=== PATIENT | male | born 1930 | race Caucasian/White ===

== ENCOUNTER 2017-12-24 10:06 | Observation (INO) | payer OTHER, BC ==
[~2017-12-24] VITALS: Ht 167.6 cm; Wt 65.7 kg
[~2017-12-24 10:06] MED LIST: ASPIRIN E.C.81 M2 PO; COUMADIN,JANTO1.5 MG PO; CYANOCOBALAM1000 MCG PO; FISH OIL 1,0001 EAC4 PO; LIPITOR20 MG PO; METHOCARBAMOL500 MG PO; NEXIUM40 MG PO; OMEGA 3 1,0001 EAC1 PO; OMEGA 3 1,0001 EACH PO; OMEGA-3100 MG PO; PRADAXA150 MG PO; PRINIVIL5 MG PO; Proventil,Ventolin H IH; TOPROL XL25 MG PO; TOPROL XL50 MG PO; TYLENOL EXTRA500 MG PO; VITAMIN B12-FO1 EACH PO; VITAMIN D; VITAMIN D2000 INTUN PO; VITAMIN D31000 UNI2 PO; VITAMIN D400 UNI2 PO; XALATAN 0.50 DROP/2. BOTH EYES; XALATAN2.5 ML BOTH EYES; XARELTO15 MG PO; ZESTRIL,PRINIVI20 MG PO; ZETIA10 MG PO
[2017-12-24 10:48] LABS: HEMATOCRIT 42.7 % (38.0-50.0); HEMOGLOBIN 14.7 G/DL (12.5-16.6); MCH 30.9 PG (29.0-34.0); MCHC 34.4 G/DL (30.0-36.0); MCV 89.7 FL (86-99); PLATELET COUNT 159 K/uL (156-360); RBC DIS.WIDTH-CV 12.9 % (11.8-14.6); RBC DIS.WIDTH-SD 42.1 % (39-53); RED BLOOD COUNT 4.76 M/uL (4.00-5.50); WHITE BLOOD COUNT 7.4 K/uL (4.1-10.2)
[2017-12-24 11:11] LABS: CHLORIDE 105 MEQ/L (99-109); POTASSIUM 3.7 MEQ/L (3.7-5.4); SODIUM 140 MEQ/L (136-147)
[2017-12-24 11:17] LABS: CREATININE 0.8 MG/DL (0.6-1.3); GFR ESTIMATE (CALCULATED) > 59 mL/min/ (58.99-99999); GLUCOSE 128 mg/dL (70-99); UREA NITROGEN (BUN) 14 mg/dL (9-23)
[2017-12-24 11:19] LABS: TROP-I INTERPRETATION NEGATIVE; TROPONIN-I < 0.01 ng/mL (0.0-0.30)
[2017-12-24] MEDS ORDERED: PREDNISONE1 MG PO (12:10)
[2017-12-24] MEDS ORDERED: HYOSCYAMINE0.375 MG PO (12:11)
[2017-12-24] MEDS ORDERED: FLONASE16 G1 BOTH NARES (12:12)
[2017-12-24 13:04] VITALS: BP 186/86
[2017-12-24 16:59] LABS: TROP-I INTERPRETATION NEGATIVE; TROPONIN-I < 0.01 ng/mL (0.0-0.30)
[2017-12-24 19:37] VITALS: BP 150/71
[2017-12-24 22:43] LABS: TROP-I INTERPRETATION NEGATIVE; TROPONIN-I < 0.01 ng/mL (0.0-0.30)
[2017-12-24 23:33] VITALS: BP 145/65
[2017-12-25 03:47] VITALS: BP 129/64
[2017-12-25 05:35] LABS: HEMATOCRIT 40.9 % (38.0-50.0); HEMOGLOBIN 13.7 G/DL (12.5-16.6); MCH 30.6 PG (29.0-34.0); MCHC 33.5 G/DL (30.0-36.0); MCV 91.3 FL (86-99); PLATELET COUNT 146 K/uL (156-360); RBC DIS.WIDTH-SD 42.5 % (39-53); RED BLOOD COUNT 4.48 M/uL (4.00-5.50); WHITE BLOOD COUNT 7.1 K/uL (4.1-10.2)
[2017-12-25 05:58] LABS: CHLORIDE 106 MEQ/L (99-109); CREATININE 0.8 MG/DL (0.6-1.3); GFR ESTIMATE (CALCULATED) > 59 mL/min/ (58.99-99999); GLUCOSE 115 mg/dL (70-99); POTASSIUM 3.7 MEQ/L (3.7-5.4); SODIUM 141 MEQ/L (136-147); UREA NITROGEN (BUN) 13 mg/dL (9-23)
[2017-12-25 07:21] VITALS: BP 150/64
== END 2017-12-25 10:38 | disposition home or self-care (01) ==
LOC: EME 10:06 → EDOF 11:41 → ENRESERV 11:54 → 4SOUTH 12:45
PROVIDERS: Internal Medicine
DX: R07.89 Other chest pain (principal); I25.10 Atherosclerotic heart disease of native coronary artery without angina pectoris; I25.2 Old myocardial infarction; Z95.5 Presence of coronary angioplasty implant and graft; I10 Essential (primary) hypertension; E78.5 Hyperlipidemia, unspecified; I48.0 Paroxysmal atrial fibrillation; Z85.46 Personal history of malignant neoplasm of prostate; K21.9 Gastro-esophageal reflux disease without esophagitis; M35.3 Polymyalgia rheumatica; H40.9 Unspecified glaucoma; Z92.3 Personal history of irradiation; Z82.49 Family history of ischemic heart disease and other diseases of the circulatory system; Z82.3 Family history of stroke; Z79.52 Long term (current) use of systemic steroids
CPT/HCPCS: 71046; 80048; 84484; 85027; 93005; 99281; 99284; G0378; J7512

== ENCOUNTER 2018-01-18 12:00 | Observation (INO) | payer OTHER, BC ==
[~2018-01-18] VITALS: Ht 167.6 cm; Wt 63.9 kg
[~2018-01-18 12:00] MED LIST changes: +FLONASE16 G1 BOTH NARES; +HYOSCYAMINE0.375 MG PO; +PREDNISONE5 MG PO
[2018-01-18 13:21] LABS: HEMATOCRIT 46.2 % (38.0-50.0); HEMOGLOBIN 15.8 G/DL (12.5-16.6); MCH 30.8 PG (29.0-34.0); MCHC 34.2 G/DL (30.0-36.0); MCV 90.1 FL (86-99); PLATELET COUNT 166 K/uL (156-360); RBC DIS.WIDTH-CV 13.3 % (11.8-14.6); RBC DIS.WIDTH-SD 43.7 % (39-53); RED BLOOD COUNT 5.13 M/uL (4.00-5.50); WHITE BLOOD COUNT 8.8 K/uL (4.1-10.2)
[2018-01-18 13:28] LABS: ALBUMIN 4.6 g/dL (3.2-4.8)
[2018-01-18 13:29] LABS: CHLORIDE 106 mEq/L (99-109); POTASSIUM 3.9 mEq/L (3.7-5.4); SODIUM 142 mEq/L (136-147)
[2018-01-18 13:31] LABS: GLUCOSE 98 mg/dL (70-99); TOTAL PROTEIN 7.6 g/dL (6.4-8.3)
[2018-01-18 13:33] LABS: TOTAL BILIRUBIN 0.9 mg/dL (0.0-1.0)
[2018-01-18 13:34] LABS: ALKALINE PHOSPHATASE 78 IU/L (3-129)
[2018-01-18 13:35] LABS: CREATININE 0.9 mg/dL (0.6-1.3); GFR ESTIMATE (CALCULATED) > 59 mL/min/ (58.99-99999)
[2018-01-18 13:36] LABS: AST (GOT) 18 IU/L (2-34); UREA NITROGEN (BUN) 12 mg/dL (9-23)
[2018-01-18 13:38] LABS: ALT (GPT) 20 IU/L (3-49); TROP-I INTERPRETATION NEGATIVE; TROPONIN-I < 0.01 ng/mL (0.0-0.30)
[2018-01-18 19:20] VITALS: BP 161/73
[2018-01-18 19:29] LABS: TROP-I INTERPRETATION NEGATIVE; TROPONIN-I < 0.01 ng/mL (0.0-0.30)
[2018-01-19 01:17] LABS: TROP-I INTERPRETATION NEGATIVE; TROPONIN-I < 0.01 ng/mL (0.0-0.30)
[2018-01-19 03:30] VITALS: BP 113/60
[2018-01-19 07:50] VITALS: BP 155/67
[2018-01-19 15:22] VITALS: BP 123/55
[2018-01-19] MEDS ORDERED: NITROSTAT0.4 MG SL (16:26)
== END 2018-01-19 18:45 | disposition home or self-care (01) ==
LOC: EME 12:00 → 4EAST 15:20 → EDOF 15:20 → 4EAST 15:20 → ENRESERV 15:21 → 4EAST 19:08
PROVIDERS: Emergency Medicine; Internal Medicine
PROC: B2111ZZ Fluoroscopy of Multiple Coronary Arteries using Low Osmolar Contrast (ICD-10-PCS; principal; 2018-01-19)
PROC: 4A023N7 Measurement of Cardiac Sampling and Pressure, Left Heart, Percutaneous Approach (ICD-10-PCS; principal; 2018-01-19)
PROC: B2151ZZ Fluoroscopy of Left Heart using Low Osmolar Contrast (ICD-10-PCS; principal; 2018-01-19)
DX: R07.89 Other chest pain (principal); I25.10 Atherosclerotic heart disease of native coronary artery without angina pectoris; I25.84 Coronary atherosclerosis due to calcified coronary lesion; Z95.5 Presence of coronary angioplasty implant and graft; I48.1 Persistent atrial fibrillation; I25.2 Old myocardial infarction; Z79.01 Long term (current) use of anticoagulants; I10 Essential (primary) hypertension; E78.5 Hyperlipidemia, unspecified; Z85.46 Personal history of malignant neoplasm of prostate; Z92.3 Personal history of irradiation; M35.3 Polymyalgia rheumatica; R63.4 Abnormal weight loss; Z82.49 Family history of ischemic heart disease and other diseases of the circulatory system; Z82.3 Family history of stroke
CPT/HCPCS: 71046; 80053; 84484; 85027; 93005; 99281; 99285; C1769; C1887; C1894; G0378; J1644; J2250; J3010; J7040; J7512